=== PATIENT | female | born 1980 | race Asian ===

== ENCOUNTER → 2016-04-18 | Outpatient (CLI) | payer BC ==
--- NOTE | 2016-04-18 19:08 | US ---
Pelvic Ultrasound April 18, 2016 Indication: 35-year-old woman with pelvic pain. LMP March 28, 2016. Technique: Transabdominal and transvaginal imaging. Findings: Transabdominal Imaging: The anteverted minimally retroflexed uterus is normal size measuring 7.4 cm in length x 4.5 x 3.4 cm. No adnexal mass or free fluid. Transvaginal Imaging: The ovaries are normal size with small peripheral follicles and normal blood f low on Color Doppler imaging. A benign small 3.2 x 2.9 x 2.4 cm simple cyst resides in the right ovar y. The right ovary measures 3.5 x 3.4 x 2.8 cm. The left ovary measures 3.0 x 2.7 x 1.4 cm. The uterus flips into a retroverted position on the transvaginal imaging. The myometrium is homogeneo us and normal. No uterine leiomyoma. Endometrial lining is homogeneous and thin (4 mm). Impression: 1. Benign small simple cyst right ovary. No follow up is necessary. 2. No adnexal mass, free fluid, or evidence of ovarian torsion. 3. Normal uterus.
== END ==
LOC: BRMIMAGING 12:34
PROVIDERS: ATTEND Midwife
DX: N83.291 Other ovarian cyst, right side (principal)
CPT/HCPCS: 76856-PO